=== PATIENT | female | born 1970 | race Caucasian/White ===

== ENCOUNTER → 2019-09-02 10:20 | Outpatient (BNVA) | payer OTHER, SELFPAY | PROVIDERS: Family Provider Registered Nurse; Visit Provider Registered Nurse | DX: E03.9 Hypothyroidism, unspecified (principal); F32.9 Major depressive disorder, single episode, unspecified | CPT/HCPCS: 84443 ==

== ENCOUNTER → 2021-11-12 09:08 | Outpatient (BNVA) | payer OTHER, SELFPAY | PROVIDERS: Family Provider Registered Nurse; PCP Registered Nurse; Visit Provider Registered Nurse | DX: E03.9 Hypothyroidism, unspecified (principal); G47.00 Insomnia, unspecified; Z68.38 Body mass index [BMI] 38.0-38.9, adult; F41.8 Other specified anxiety disorders | CPT/HCPCS: 84443 ==

== ENCOUNTER → 2023-07-19 08:48 | Outpatient (BNVA) | payer OTHER, SELFPAY | PROVIDERS: Family Provider Registered Nurse; PCP Registered Nurse; Visit Provider Registered Nurse | DX: E03.9 Hypothyroidism, unspecified (principal); F41.8 Other specified anxiety disorders; E66.01 Morbid (severe) obesity due to excess calories; Z68.41 Body mass index [BMI] 40.0-44.9, adult | CPT/HCPCS: 80053; 80061; 82607; 84443; 85025 ==

== ENCOUNTER → 2023-10-23 10:59 | Outpatient (BNVA) | payer OTHER, SELFPAY | PROVIDERS: Family Provider Registered Nurse; PCP Registered Nurse; Visit Provider Registered Nurse | DX: E03.9 Hypothyroidism, unspecified (principal); F41.8 Other specified anxiety disorders | CPT/HCPCS: 82607; 84443 ==

== ENCOUNTER → 2023-11-22 08:02 | Outpatient (BNVA) | payer OTHER, SELFPAY | PROVIDERS: Family Provider Registered Nurse; PCP Registered Nurse; Visit Provider Registered Nurse | DX: E03.9 Hypothyroidism, unspecified (principal) | CPT/HCPCS: 84443 ==